=== PATIENT | female | born 1950 | race Two or more races ===

== ENCOUNTER → 2017-12-10 | Outpatient (CLI) | END | disposition home or self-care (01) ==

== ENCOUNTER → 2017-12-21 | Outpatient (CLI) | END | disposition home or self-care (01) ==

== ENCOUNTER → 2018-09-03 | Outpatient (CLI) | payer MEDICARE, OTHER ==
[~2018-09-03] MED LIST: AMLO1CAP4 PO; ATEN-51 PO; ESOM40SU PO; LEVO50TA64 PO; LISI10TA2 PO
--- NOTE | 2018-09-03 16:41 | HKNOTE ---
DATE OF SERVICE: 09/03/2018 HISTORY OF PRESENT ILLNESS: Ms. Ferrell returned today for a complaint of bilateral knee pain. She states that the pain is interfering with her activities of daily living. She is here today for bilat eral knee steroid injections. PHYSICAL EXAMINATION: Right knee: Neutral alignment. Tender over the medial joint line, 0 to 110 degrees range of motion, stable to varus valgus stress. Negative Gunner, negative anterior drawer, negative posterior drawe r, negative Arelis's. Left knee: Neutral alignment. Tender over the medial joint line, 0 to 110 degrees range of motion, stable to varus valgus stress. Negative Gunner, negative anterior drawer, negative posterior drawer , negative Arelis's. DIAGNOSIS: A 68-year-old female with bilateral knee osteoarthritis. PLAN: After obtaining consent, the right knee was prepped and draped in the usual sterile fashion. A mixture of 1 mL of Kenalog along with 4 mL of 1% lidocaine was injected through the lateral portal. There were no complications. She tolerated the procedure well. Similarly, the left knee was prepped and draped in usual sterile fashion. A mixture of 1 mL of Kenal og, along with 4 mL of 1% lidocaine was injected through the lateral portal. There were no complicat ions. She tolerated the procedure well. She was instructed to ice and elevate bilateral knees. She can be weightbearing as tolerated. She w ill follow up in 3 months. Dictated By: CARMENZA APARICIO/AFIA Conf#: [id number] DID#: [id number]
== END | disposition home or self-care (01) ==
LOC: HKI 14:17
PROVIDERS: ATTEND Orthopaedic Surgery Adult Reconstructive Orthopaedic Surgery
DX: M17.0 Bilateral primary osteoarthritis of knee (principal)
CPT/HCPCS: 20610; G0463

== ENCOUNTER 2018-10-25 06:51 | Day surgery (SDC) | payer MEDICARE, OTHER ==
[~2018-10-25] VITALS: Ht 152.4 cm; Wt 81.7 kg
[2018-10-25] VITALS (14 sets, daily range): BP systolic 111–158; BP diastolic 59–93; PULSE 62–83; RESP 14–28; Ht 152.4 cm; Wt 81.7 kg
[~2018-10-25 06:51] MED LIST changes: +CEFAZOLIN 2 GM/50 ML (PMX) 50 ML IVPB SCH; +SOD CHLORIDE 0.9% 1,000 ML IV ONE
[2018-10-25] MEDS ORDERED: OMEP40CA6 PO (07:45)
[2018-10-25] MEDS ORDERED: AMLO5TAB4 PO (07:45)
[2018-10-25] MEDS ORDERED: LEVO50TA71 PO (07:46)
--- NOTE | 2018-10-25 08:47 | PREAC ---
Date/Time of Note Date/Time of Note DATE: 10/25/18 TIME: 08:45 Anesthesia Eval and Record Evaluation Time Pre-Procedure Interview DATE: 10/25/18 TIME: 08:45 Age 68 Sex female NPO: 8 hrs Preoperative diagnosis cholelithiasis Planned procedure lap radha Past Medical History Past Medical History: Includes Cardio: HTN, Other (EF 60%) Endo: Hypothyroid GI: GERD, Obesity Surgery & Anesthesia Issues No known issue Meds Anticoagulation: No Beta Duglas within 24 hr: No Reason Beta Duglas not given: Pt. not on B-Duglas Reported Medications Levothyroxine Sodium* (Levoxyl*) 50 Mcg Tablet, 50 MCG PO BEFORE BREAKFAST, #30 TAB 10/25/18 Omeprazole* (Omeprazole*) 40 Mg Capsule.dr, 40 MG PO DAILY, #30 CAP 10/25/18 Amlodipine Besylate* (Norvasc*) 5 Mg Tablet, 5 MG PO DAILY, TAB 10/25/18 Discontinued Reported Medications Levothyroxine Sodium (Levothroid) 50 Mcg Tablet, 50 MCG PO DAILY 10/23/13 Esomeprazole Mag Trihydrate (Nexium Packet) 40 Mg/Packet Suspdr.pkt, 40 MG PO DAILY 10/23/13 Amlodipine-Benazepril (Lotrel) 1 Cap Capsule, 1 CAP PO DAILY 10/23/13 Lisinopril* (Lisinopril*) 10 Mg Tablet, 10 MG PO DAILY 10/23/13 Atenolol* (Atenolol*) 25 Mg Tablet, 25 MG PO DAILY 10/23/13 Current Medications Cefazolin Sodium/ Dextrose 50 ml @ 100 mls/hr PRE-OP IVPB ; Start 10/25/18 at 06:00; Stop 10/25/18 at 15:00 Sodium Chloride 1,000 ml @ 75 mls/hr [id number] ONCE IV Last administered on 10/25/18at 06:00; Admin Dose 75 MLS/HR; Start 10/25/18 at 06:00; Stop 10/25/18 at 19:19 Meds reviewed: Yes Allergies Coded Allergies: No Known Drug Allergies (Unverified Allergy, Unknown, 10/25/18) Allergies Reviewed: Yes Labs/Studies Labs Reviewed: Reviewed by anesthesiologist test: N/A Studies: ECG (sr), CXR (nl) Pre-procedure Exam Last vitals Vital Signs Date Temp Pulse Resp B/P (MAP) Pulse Ox O2 O2 Flow FiO2 Time Delivery Rate 10/25/18 97.7 81 16 158/90 96 08:05 (112) Airway: Adequate mouth opening Mallampati: Mallampati I Teeth: Abnormal (denture) Lung: Normal Heart: Normal ASA Physical Status ASA physical status: 2 Emergency: None Planned Anesthetic General/MAC: ETT Nerve block: TAP (bilateral) Planned Pain Management Single shot nerve block, Parenteral pain med Pre-operative Attestations Prior to commencing anesthesia and surgery, the patient was re-evaluated, there was verification of: *The patient's identity *The results of appropriate recent lab work and preoperative vital signs *The above evaluation not changing prior to induction *Anesthetic plan, risk benefits, alternative and complications discussed with patient/family; questions answered; patient/family understands, accepts and wishes to proceed. PATRICK CHAMORRO MD Oct 25, 2018 08:47
[2018-10-25] MEDS ORDERED: ROCURONIUM 50 MG INJ ONE (08:52)
[2018-10-25] MEDS ORDERED: ONDANSETRON 4 MG INJ ONE (08:52)
[2018-10-25] MEDS ORDERED: ROPIVACAINE 0.5 % 30 ML VIAL ONE (08:52)
[2018-10-25] MEDS ORDERED: METOCLOPRAMIDE 10 MG INJ ONE (08:52)
[2018-10-25] MEDS ORDERED: PROPOFOL 20 ML ONE (08:52)
[2018-10-25] MEDS ORDERED: MIDAZOLAM 1 MG/ML 2 ML INJ ONE (08:53)
[2018-10-25] MEDS ORDERED: hydrALAzine 20 MG INJ IV PRN (09:00)
[2018-10-25] MEDS ORDERED: ONDANSETRON 4 MG INJ IV PRN (09:00)
[2018-10-25] MEDS ORDERED: FENTAnyl 50 MCG/ML VIAL IV PRN ×3 (09:00)
[2018-10-25] MEDS ORDERED: MEPERIDINE 25 MG INJ IV PRN (09:00)
[2018-10-25] MEDS ORDERED: HYDROmorphONE 1 MG/5 ML IV SYRINGE IV PRN ×3 (09:00)
[2018-10-25] MEDS ORDERED: LABETALOL HCL 20MG INJ IV PRN (09:00)
[2018-10-25] MEDS ORDERED: DIPHENHYDRAMINE 50 MG INJ IV PRN (09:00)
[2018-10-25] MEDS ORDERED: OXYCODONE/ACETAMINOPHEN (5/325) TAB PO PRN ×2 (09:00)
[2018-10-25] MEDS ORDERED: CEFAZOLIN 1 GM INJ ONE (09:11)
[2018-10-25] MEDS ORDERED: NEOSTIGMINE 3 MG/3 ML SYRINGE ONE (09:44)
[2018-10-25] MEDS ORDERED: GLYCOPYRROLATE 0.4 MG INJ ONE (09:44)
--- NOTE | 2018-10-25 09:51 | OPR ---
Date/Time of Note Date/Time of Note DATE: 10/25/18 TIME: 09:48 Operative Report Procedure Date: Oct 25, 2018 Preoperative Diagnosis symptomatic gallstones Postoperative Diagnosis same Operation/Procedure Performed laparoscopic cholecystectomy Surgeon see signature line Generator Mechanic none Anesthesia Type: general Estimated Blood Loss: 10 - 50 ml's Transfusion none Specimen gallbladder Grafts/Implants none Complications none Pt Condition Post Procedure: stable Indications This is a 68-year-old female with some tender gallstones. She requests surgical excision of her gallbladder. Risks alternatives benefits and percent were discussed the patient. Patient expressed understanding and consents to the operation. Procedure Description Patient is taken to the OR and prepped and draped in usual sterile fashion. Surgical timeout was performed. IV antibiotics given. Infraumbilical transverse incision was made to 15 blade. Dissection with cautery is good onto the fascia. The fascia was grasped with Beni's and fascia was divided with curved Lee scissors. 0 Vicryl U stitch was placed into the fascia. Reveles trocar was introduced. Pneumoperitoneum is established. Midepigastric 12 mm optical trochars placed under direct physician. Right upper quadrant upper flank 5 mm optical trochars were placed under direct visualization. Upon initial inspection there is some adhesions to the gallbladder which were taken down bluntly. The gallbladder was grasped with a finder to retract and lateral cephalad direction. [place] graspers were used to dissect out the cystic duct and cystic artery. The critical view was established. The cystic duct appeared very thickened and was divided with a 35 mm echelon vessel stapler. Cystic artery was divided with 3 clips proximally clipped distally and the division were performed laparoscopic scissors. The gallbladder was taken off the gallbladder bed. Good hemostasis established. The gallbladder is retrieved using Endo Catch bag. Suction irrigation is used to clean out the area. All ports removed under direct visualization. Overdiuresis tied down. Skin is closed and skin pepe. A tap block was provided by the anesthesiologist. Dry dressings were applied. Gege NIETO Oct 25, 2018 09:51
[2018-10-25] MEDS ORDERED: HYDROCODONE/APAP (5/325) TAB PO ONE (10:00)
== END 2018-10-25 11:47 | disposition home or self-care (01) ==
LOC: SDS 06:51
PROVIDERS: ATTEND Surgery
DX: K80.80 Other cholelithiasis without obstruction (principal); I10 Essential (primary) hypertension; E03.9 Hypothyroidism, unspecified
CPT/HCPCS: 47562; J0690; J1170; J2175; J2405; J2710; J2765; J2795; J2250